=== PATIENT | female | born 1965 ===

== ENCOUNTER 2018-11-09 10:46 | Outpatient (CLI) | payer OTHER | END 2018-11-09 10:47 | disposition home or self-care (01) | LOC: C.LAB 10:46 | DX: E11.9 Type 2 diabetes mellitus without complications (principal); E78.2 Mixed hyperlipidemia; I10 Essential (primary) hypertension; K76.0 Fatty (change of) liver, not elsewhere classified; Z13.9 Encounter for screening, unspecified ==

== ENCOUNTER 2018-11-12 11:24 | Outpatient (CLI) | payer SELFPAY, OTHER | END 2018-11-12 11:25 | disposition home or self-care (01) | LOC: C.USIC 11:24 | DX: K76.0 Fatty (change of) liver, not elsewhere classified (principal) ==